=== PATIENT | female | born 1975 | race Two or more races ===

== ENCOUNTER 2016-07-19 17:31 | Inpatient (IN) | payer OTHER ==
[2016-07-19] MEDS ORDERED: HYDROmorphone HCL CARPU-JECT 1 MG/1 ML DISP.SYRIN IVPB ONE (17:44)
[2016-07-19 17:50] VITALS: BMI 38.4
[2016-07-19] MEDS: SODIUM CHLORIDE 1,000 ML IV SCH (17:52)
[2016-07-19] MEDS ORDERED: HYDROmorphone HCL CARPU-JECT 1 MG/1 ML DISP.SYRIN ONE (17:53)
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
[2016-07-19] MEDS ORDERED: VANCOMYCIN 1,000 MG in DEXTROSE 5%-WATER - 250 ML IVPB ONE (18:04)
[2016-07-19] MEDS ORDERED: PIPERACILLIN/TAZOB 3.375 GM/50 ML PRE-DOCKED IVPB ONE (18:04)
[2016-07-19 18:11] LABS: BASOPHIL 0.3 % (0-2.0); MCH 26.4 pg (25.7-33.7); MEAN CELL VOLUME 82.4 fl (80-96); NEUTROPHILS 59.4 % (42.8-82.8); PLATELET COUNT 225 K/MM3 (134-434); RDW 14.5 % (11.6-15.6); WHITE BLOOD COUNT 10.6 K/mm3 (4.0-10.0)
[2016-07-19] MEDS ORDERED: PIPERACILLIN/TAZOB 3.375 GM 50 ML IVPB ONE (18:33)
[2016-07-19] MEDS ORDERED: VANCOMYCIN 1 GRAM (PRE-DOCKED) 250 ML IVPB ONE (18:33)
[2016-07-19 19:17] LABS: ALBUMIN 2.9 g/dl (3.4-5.0); ALK PHOS 89 U/L (45-117); ANION GAP 7 (8-16); BILIRUBIN,TOTAL 0.2 mg/dL (0.2-1.0); CALCIUM 8.1 mg/dL (8.5-10.1); CO2 27 mmol/L (21-32); COCKROFT - GAULT 160.6415; CREATININE 0.7 mg/dL (0.55-1.02); GLUCOSE,RANDOM 94 mg/dL (74-106); SGOT/AST 14 U/L (15-37); SGPT/ALT 17 U/L (12-78); TOT PROT 6.8 g/dl (6.4-8.2)
[2016-07-19 21:14] LABS: URINE APPEARANCE CLOUDY; URINE BILIRUBIN NEGATIVE (NEGATIVE); URINE COLOR YELLOW; URINE GLUCOSE (UA) NEGATIVE (NEGATIVE); URINE KETONE NEGATIVE (NEGATIVE); URINE NITRITE POSITIVE (NEGATIVE); URINE UROBILINOGEN NEGATIVE E.U./dl (0.2-1.0)
[2016-07-19 21:26] LABS: URINE BLOOD 3+ (NEGATIVE); URINE LEUK ESTERASE 3+ (NEGATIVE); URINE PROTEIN 1+ (NEGATIVE)
[2016-07-19 21:27] LABS: URINE MUCUS RARE; URINE RBC 3091 /hpf (0-3); URINE WBC 381 /hpf (3-5)
--- NOTE | 2016-07-19 22:07 | PN ---
<Jono Delgadillo - Last Filed: 07/19/16 22:04> Teaching Attending Note Name of Resident: Enzo Francis ATTENDING PHYSICIAN STATEMENT I saw and evaluated the patient. I reviewed the resident's note and discussed the case with the resident. I agree with the resident's findings and plan as documented. SUBJECTIVE: OBJECTIVE: ASSESSMENT AND PLAN: <Maria Alejandra Loredo - Last Filed: 07/19/16 23:46> Teaching Attending Note ATTENDING PHYSICIAN STATEMENT I saw and evaluated the patient. I reviewed the resident's note and discussed the case with the resident. I agree with the resident's findings and plan as documented. SUBJECTIVE: 40 year old female with a pmhx of hypertension, hypercholesterolemia, diabetes mellitus, left ventricular hypokinesia with an ejection fraction of 30% and congestive heart failure, s/p cystourethroscopy with botox due to urinary incontinence presents with pain on urination. Smith removal 07/13 and vaginal packing inserted at that time. Patient reports pain and dysuria and urinary incontinence [address] Sam Velez OBJECTIVE: VS: Last Vital Signs Temp Pulse Resp BP Pulse Ox 98.4 F 90 18 150/95 100 07/19/16 17:37 07/19/16 17:37 07/19/16 17:37 07/19/16 17:37 07/19/16 17:37 GEN: NAD HEENT: NCAT, PERRL CARD: RRR, S1 S2 RESP: CTAB ABD: NT, BWS x4 EXT: - CCE LABS: CBCD WBC 10.6 K/mm3 (4.0-10.0) H 07/19/16 18:00 RBC 4.14 M/mm3 (3.60-5.2) 07/19/16 18:00 Hgb 10.9 GM/dL (10.7-15.3) 07/19/16 18:00 Hct 34.2 % (32.4-45.2) 07/19/16 18:00 MCV 82.4 fl (80-96) 07/19/16 18:00 MCHC 32.0 g/dl (32.0-36.0) 07/19/16 18:00 RDW 14.5 % (11.6-15.6) 07/19/16 18:00 Plt Count 225 K/MM3 (134-434) 07/19/16 18:00 MPV 9.0 fl (7.5-11.1) 07/19/16 18:00 CMP Sodium 138 mmol/L (136-145) 07/19/16 17:43 Potassium 4.2 mmol/L (3.5-5.1) 07/19/16 17:43 Chloride 104 mmol/L (98-107) 07/19/16 17:43 Carbon Dioxide 27 mmol/L (21-32) 07/19/16 17:43 Anion Gap 7 (8-16) L 07/19/16 17:43 BUN 14 mg/dL (7-18) 07/19/16 17:43 Creatinine 0.7 mg/dL (0.55-1.02) 07/19/16 17:43 Creat Clearance w eGFR > 60 (>60) 07/19/16 17:43 Calcium 8.1 mg/dL (8.5-10.1) L 07/19/16 17:43 Total Bilirubin 0.2 mg/dL (0.2-1.0) 07/19/16 17:43 AST 14 U/L (15-37) L 07/19/16 17:43 ALT 17 U/L (12-78) 07/19/16 17:43 Alkaline Phosphatase 89 U/L (45-117) 07/19/16 17:43 Total Protein 6.8 g/dl (6.4-8.2) 07/19/16 17:43 Albumin 2.9 g/dl (3.4-5.0) L 07/19/16 17:43 IMAGING: THIS IS A PRELIMINARY REPORT FROM [facility] EXAM: Ultrasound kidneys complete Pelvic ultrasound, non-OB EXAM DATE AND TIME: 2016-07-19 20:10:09.0 FINDINGS: Right kidney mild hydronephrosis. Otherwise bilateral kidneys are unremarkable. The kidney length 9.2 cm, left kidney 10.1 cm. Urinary bladder was not significantly distended during the exam, maximal volume noted 133 cc prevoid, with wall thickness 3.5 mm uniformly. Postvoid urinary bladder volume 11 mm. Bilateral ureteral jets intact. No large hematoma noted. Uterus shows no gross abnormality, however. Endometrium is not visualized on this transabdominal ultrasound. Uterine measurements 8.9 x 4.1 x 4.1 cm. Right ovary not visualized. Left ovary with complex cyst having multiple septations, 4.1 x 3.1 x 3.9 cm. The overall left ovary measures 6.5 x 4.7 x 5.4 cm. Follow-up pelvic sonogram in 6-12 weeks for reassessment. . No pelvic free fluid. THIS DOCUMENT HAS BEEN ELECTRONICALLY SIGNED Dante Mcintosh D.O. ASSESSMENT AND PLAN: 40 year old female with a pmhx of hypertension, hypercholesterolemia, diabetes mellitus, left ventricular hypokinesia with an ejection fraction of 30% and congestive heart failure, s/p cystourethroscopy with botox presents with dysuria found to have UTI. 1. UTI - Vanco Zosyn in ED - Continue Zosyn - ID consult - Prior culture 6/2 positive for Eslb Kleb 2. S/p history of reflex bladder s/p cystourethroscopy - Continue home meds - Urology consult 3. HTN - Continue home meds 4. DM - Hold metformin - RISS - Diabetic diet 5. Left ovarian cyst - Follow up with OB 6. DVT ppx - Low risk SCDs Admit to MedSurg. Documentation prepared by Maria Alejandra Loredo, acting as medical billing clerk for Jono Delgadillo D.O.
[2016-07-19] MEDS ORDERED: ACETAMINOPHEN 325 MG TABLET (FP) PO PRN (23:03)
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
[2016-07-20] MEDS ORDERED: ACETAMINOPHEN 325 MG TABLET (FP) ONE (03:25)
[2016-07-20] MEDS ORDERED: PIPERACILLIN/TAZOB 3.375 GM/50 ML PRE-DOCKED IVPB ONE (04:00)
[2016-07-20] MEDS ORDERED: PIPERACILLIN/TAZOB 3.375 GM 50 ML IVPB ONE (04:38)
[2016-07-20] MEDS: SODIUM CHLORIDE 1,000 ML IV SCH (05:02)
[2016-07-20 06:25] LABS: BASOPHIL 0.4 % (0-2.0); EOSINOPHIL 6.4 % (0-4.5); MCH 26.8 pg (25.7-33.7); MCHC 32.2 g/dl (32.0-36.0); MEAN CELL VOLUME 83.4 fl (80-96); NEUTROPHILS 58.7 % (42.8-82.8); PLATELET COUNT 208 K/MM3 (134-434); RDW 14.7 % (11.6-15.6); WHITE BLOOD COUNT 9.3 K/mm3 (4.0-10.0)
[2016-07-20 08:09] LABS: ALBUMIN 2.7 g/dl (3.4-5.0); ANION GAP 11 (8-16); CALCIUM 7.8 mg/dL (8.5-10.1); CO2 23 mmol/L (21-32); COCKROFT - GAULT 160.6415; CREATININE 0.7 mg/dL (0.55-1.02); GLUCOSE,RANDOM 106 mg/dL (74-106); SGOT/AST 14 U/L (15-37); SGPT/ALT 16 U/L (12-78)
[2016-07-20 08:12] LABS: ALK PHOS 84 U/L (45-117); BILIRUBIN,TOTAL 0.2 mg/dL (0.2-1.0); TOT PROT 6.3 g/dl (6.4-8.2)
--- NOTE | 2016-07-20 09:54 | PN ---
Progress Note (short form) - Note Progress Note: ID Full note dictated Patient not acutely ill Selected Entries 07/19/16 07/20/16 23:11 07:05 Temperature 98 F Pulse Rate [ 80 Apical] Respiratory 18 Rate Blood Pressure 104/64 [Left Arm] Microbiology 07/10/16 10:30 Urine - Urine, Via Cystoscope Urine Culture - Final Klebsiella Pneumoniae - Esbl Laboratory Tests 07/20/16 07/20/16 06:00 06:35 WBC 9.3 Hct 32.7 Plt Count 208 BUN 12 Creatinine 0.7 Creat Clearance w eGFR > 60 Assessment No sign of sepsis fever WBC or need for systemic antibiotics Plan patient s needs best met by discharge with direct to office urology appt [facility] Problem List - Problems (1) UTI (urinary tract infection) Code(s): N39.0 - URINARY TRACT INFECTION, SITE NOT SPECIFIED
[2016-07-20] MEDS ORDERED: IMIPRAMINE HCL 50 MG PO SCH (10:00)
[2016-07-20] MEDS ORDERED: METOPROLOL SUCCINATE 100 MG TAB.SR.24H (FP) PO SCH (10:00)
[2016-07-20] MEDS ORDERED: ASPIRIN 81 MG CHEWABLE TABLETS PO SCH (10:00)
[2016-07-20] MEDS ORDERED: cefTRIAXone 1 GM/50 ML BAG (PRE-DOCKED) IVPB SCH (10:00)
[2016-07-20] MEDS ORDERED: CEFTRIAXONE 1 GM in DEXTROSE 5%-WATER - 50 ML IVPB SCH (10:00)
[2016-07-20] MEDS ORDERED: LISINOPRIL 20 MG TABLET (FP) PO SCH (10:00)
[2016-07-20 10:26] VITALS: BP 124/81; PULSE 82; TEMP 97.6
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
--- NOTE | 2016-07-20 14:06 | EKG ---
Test Reason : Blood Pressure : / mmHG Vent. Rate : 070 BPM Atrial Rate : 070 BPM P-R Int : 146 ms QRS Dur : 098 ms QT Int : 416 ms P-R-T Axes : 035 024 035 degrees QTc Int : 449 ms NORMAL SINUS RHYTHM NORMAL ECG WHEN COMPARED WITH ECG OF 10-JUL-2016 10:09, NO SIGNIFICANT CHANGE WAS FOUND Confirmed by MIKEL MUJICA MD ([id number]) on 07/20/2016 2:06:20 PM Referred By: Confirmed By:MIKEL MUJICA MD
--- NOTE | 2016-07-20 16:26 | DS ---
Physical Exam: SUBJECTIVE: Patient seen and examined at bedside. No overnight events. No new complaints. Vaginal pain has improved significantly. Denies CP,BAH,SOB, palpitations, abd.pain, N/V. OBJECTIVE: Vital Signs Period Temp Pulse Resp BP Sys/Crow Pulse Ox Last 24 Hr 97.6 F-98 F 70-82 16-18 104-124/63-81 97-100 PHYSICAL EXAM GENERAL: AAOx3, NAD HEAD: NC/AT EYES: PERRL, EOMI, sclera anicteric, conjunctiva clear. ENT: moist mucous membranes. NECK: supple, No JVD LUNGS: CTAB, NO wheezing or rales HEART: RRR, S1S2, No M/G/R ABDOMEN: Soft, nontender, nondistended, normoactive bowel sounds, no guarding, no rebound, no hepatosplenomegaly, no masses. EXTREMITIES: 2+ pulses, warm, well-perfused, no edema. NEUROLOGICAL: Cranial nerves II through XII grossly intact. Normal speech, gait not observed. LABS Laboratory Results - last 24 hr 07/20/16 07/20/16 06:00 06:35 WBC 9.3 RBC 3.92 Hgb 10.5 L Hct 32.7 MCV 83.4 MCHC 32.2 RDW 14.7 Plt Count 208 MPV 9.0 Neutrophils % 58.7 Lymphocytes % 27.0 Monocytes % 7.5 Eosinophils % 6.4 H Basophils % 0.4 Sodium 140 Potassium 4.3 Chloride 106 Carbon Dioxide 23 Anion Gap 11 BUN 12 Creatinine 0.7 Creat Clearance w eGFR > 60 Random Glucose 106 Calcium 7.8 L Total Bilirubin 0.2 AST 14 L ALT 16 Alkaline Phosphatase 84 Total Protein 6.3 L Albumin 2.7 L IMAGING: * US/KIDNEY / RENAL US [id number] US/PELVIC / BLADDER US Renal and pelvic/ bladder ultrasound: HISTORY: Status post bladder Botox. Ultrasound of the kidneys and pelvis/bladder are performed. Renal ultrasound: The right kidney demonstrates mild hydronephrosis. Otherwise the kidneys are unremarkable bilaterally. The right kidney measures 9.2 cm in length and the left kidney measures 10.1 cm in length. Pelvic ultrasound: Urinary bladder is not significantly distended during the exam with maximal volume of 133 cc prevoid and wall thickness of 3.5 mm uniformly. Post void urinary bladder volume measures 11 cc. Bilateral ureteral inflow jets with color Doppler are intact. No large hematoma is noted. Uterus shows no gross abnormality however endometrium is not visualized on this transabdominal exam. Uterine measurements are 8.9 x 4.1 x 4.1 cm. Right ovary is not visualized. Left ovary demonstrates multiple cystic areas, possibly complex cyst with septations, with the largest cystic area measuring 4.1 x 3.1 x 3.9 cm. The overall size of the left ovary measures 6.5 x 4.7 x 5.4 cm. Follow-up pelvic sonogram in 6-12 weeks for reassessment is recommended. No free fluid is seen in the pelvis. IMPRESSION: Cystic areas in the left ovary as discussed above and recommend reassessment in 6-12 weeks with follow-up pelvic sonogram. Mild right renal hydronephrosis. Additional findings as above. Preliminary report given by Dr. Mcintosh of Imaging retail loss prevention specialist on July 19, 2016 at 21:36 EST. 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 Smith removal 07/13 and vaginal packing inserted at that time. Patient reported pain and dysuria and urinary incontinence 3 days prior to visit in ER. Packing removed in ER . UA showed possible cystitis vs. UTI however evaluated by infectious disease and felt that did no represent true infection given history of retained packing , no leukocytosis, or fevers. She received one time dose of Rocephin and IVF in ER. Her urologist was called and came to evaluated her in ER. Urology advised to be discharged with follow up in office in three day. She will follow up with Urology. US also showed simple ovarian cyst. She was given referral to OBGYN at [address] [place] [address] and told to make an appointment for follow up of cyst. Her pain improved significantly and conditioned improved. Stable for discharge. Date of Admission:07/19/16 Date of Discharge: 07/20/16 Minutes to complete discharge: 35 Discharge Summary Reason For Visit: CYSTITIS Current Active Problems HTN (hypertension) (Acute) Other complications of foreign body accidentally left in body following removal of catheter or packing, initial encounter (Acute) UTI (urinary tract infection) (Acute) Cystitis (Chronic) Diabetes (Chronic) Condition: Improved - Instructions Diet, Activity, Other Instructions: -Please follow up with Dr. Velez on 07/23/16 -You can use ice or cold compress for pain. -Make an appointment to see OBGYN Dr. Vela -Diabetic diet. -Increase activity as tolerated. Referrals: Kami Goldman [Primary Care Provider] - Marla Vela MD [Staff Physician] - Sam Velez MD [Staff Physician] - Disposition: HOME - Home Medications Comprehensive Discharge Medication List: Ambulatory Orders ASA - 81 mg PO DAILY 07/09/16 Imipramine HCl 50 mg PO BID 07/09/16 Lisinopril [Prinivil] 20 mg PO DAILY 07/09/16 Metformin HCl [Metformin HCl ER] 500 mg PO DAILY 07/09/16 Metoprolol Succinate 100 mg PO DAILY 07/09/16 This patient is new to me today: Yes Date on this admission: 07/20/16 Emergency Visit: Yes ED Registration Date: 07/19/16 Care time: The patient presented to the Emergency Department on the above date and was hospitalized for further evaluation of their emergent condition. Critical Care patient: No - Discharge Referral Referred to [facility] No
--- NOTE | 2016-07-20 20:51 | PN ---
Teaching Attending Note Name of Resident: Alexander Zavaleta ATTENDING PHYSICIAN STATEMENT I saw and evaluated the patient. I reviewed the resident's note and discussed the case with the resident. I agree with the resident's findings and plan as documented. SUBJECTIVE: Patient is feeling better, with no acute distress. No fever or chills, no shortness of breath, no nausea or vomiting. OBJECTIVE: Vital Signs Temperature 97.6 F 07/20/16 10:00 Pulse Rate 82 07/20/16 10:00 Respiratory Rate 18 07/20/16 10:00 Blood Pressure 124/81 07/20/16 10:00 O2 Sat by Pulse Oximetry (%) 100 07/20/16 09:00 CBCD WBC 9.3 K/mm3 (4.0-10.0) 07/20/16 06:00 RBC 3.92 M/mm3 (3.60-5.2) 07/20/16 06:00 Hgb 10.5 GM/dL (10.7-15.3) L 07/20/16 06:00 Hct 32.7 % (32.4-45.2) 07/20/16 06:00 MCV 83.4 fl (80-96) 07/20/16 06:00 MCHC 32.2 g/dl (32.0-36.0) 07/20/16 06:00 RDW 14.7 % (11.6-15.6) 07/20/16 06:00 Plt Count 208 K/MM3 (134-434) 07/20/16 06:00 MPV 9.0 fl (7.5-11.1) 07/20/16 06:00 CMP Sodium 140 mmol/L (136-145) 07/20/16 06:35 Potassium 4.3 mmol/L (3.5-5.1) 07/20/16 06:35 Chloride 106 mmol/L (98-107) 07/20/16 06:35 Carbon Dioxide 23 mmol/L (21-32) 07/20/16 06:35 Anion Gap 11 (8-16) 07/20/16 06:35 BUN 12 mg/dL (7-18) 07/20/16 06:35 Creatinine 0.7 mg/dL (0.55-1.02) 07/20/16 06:35 Creat Clearance w eGFR > 60 (>60) 07/20/16 06:35 Random Glucose 106 mg/dL (74-106) 07/20/16 06:35 Calcium 7.8 mg/dL (8.5-10.1) L 07/20/16 06:35 Total Bilirubin 0.2 mg/dL (0.2-1.0) 07/20/16 06:35 AST 14 U/L (15-37) L 07/20/16 06:35 ALT 16 U/L (12-78) 07/20/16 06:35 Alkaline Phosphatase 84 U/L (45-117) 07/20/16 06:35 Total Protein 6.3 g/dl (6.4-8.2) L 07/20/16 06:35 Albumin 2.7 g/dl (3.4-5.0) L 07/20/16 06:35 Home Medications Medication Instructions Recorded ASA - 81 mg PO DAILY 07/09/16 Metoprolol Succinate 100 mg PO DAILY 07/09/16 RX: Imipramine HCl 50 mg PO BID 07/09/16 RX: Lisinopril [Prinivil] 20 mg PO DAILY 07/09/16 RX: Metformin HCl [Metformin HCl 500 mg PO DAILY 07/09/16 ER] ASSESSMENT AND PLAN: Patient is a 40 year old female with a pmhx of hypertension, hypercholesterolemia, diabetes mellitus, 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 Removal of gauze from vaginal wall, pain subsided post removal of the gauze. Patient was treated by antibiotics for 1 weeks. Seen By ID and recommended no further antibiotic. patient will be seen by urologist before discharge. Agree with the resident's note
--- NOTE | 2016-07-22 13:42 | CONS ---
DATE OF CONSULTATION: 07/20/2016 HISTORY OF PRESENT ILLNESS: The patient is a 40-year-old female admitted last night via the emergency room, complaining of pelvic pain, dysuria and urinary incontinence. 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 She has a history of congestive heart failure. Last week she underwent a cystourethroscopy, with injection of 200 units of Botox because of an overactive bladder. The patient presented to the emergency room with dysuria and pelvic pain. She stated that her Smith catheter was removed last week and a 4 x 4 gauze was left in place. She stated that she was to have a repeat visit on July 16 to remove the gauze. She did not show up for the visit. She is complaining of severe dysuria and urinary incontinence. She also claims that her vaginal discharge is odorless, and she is unable to adduct her legs due to pain. She denies any nausea, vomiting or diarrhea. She denies any hematuria, flank pain or vaginal bleeding. She also denies chest pain, shortness of breath or coughing. The patient is admitted because of postoperative pain and dysuria. PAST SURGICAL HISTORY: She denies any previous surgeries. ALLERGIES: She is allergic to CLINDAMYCIN and OXYCODONE. MEDICATIONS: At home she takes aspirin, imipramine, lisinopril, metformin and metoprolol. HABITS: She denies any tobacco use. She does drink alcohol occasionally. REVIEW OF SYSTEMS: A review of systems basically revealed the cardiac history, a mild dementia, dyslipidemia and urinary incontinence. PHYSICAL EXAMINATION: Exam revealed suprapubic tenderness. She complains of dysuria and urge incontinence. Neurologically, she is intact. Extremities revealed no cyanosis, clubbing or edema. There was full range of motion. Temperature on admission was 98.4. Pulse oximetry is 100%. Blood pressure 150/95. Respirations were 18 and regular. DIAGNOSTIC STUDIES: The patient underwent laboratory workup, which revealed a white count of 10.6, hemoglobin 10.9, hematocrit 34.2, platelets 225. BUN 14, creatinine 0.7, random glucose 194, lactic acid 1.2. Liver enzymes were completely normal. Urinalysis was positive for blood as well as nitrites. HOSPITAL COURSE: The patient was started on vancomycin as well as Zosyn in the emergency room. ASSESSMENT: Again, this is a 40-year-old female with history of overactive bladder. She is status post 200 units of Botox injection in the bladder. She still has overactive bladder and urinary incontinence. It appears that she has a urinary tract infection. PLAN: Recommend a renal pelvic ultrasound. Recommend IV antibiotics as per ID recommendations. We will follow in office. Sridevi [id number]
== END 2016-07-20 17:00 | disposition home or self-care (01) | DRG 466 ==
LOC: JER 17:31 → JERBED 22:07 → J8W 07-20 13:54
PROVIDERS: ADMIT Internal Medicine; ATTEND Internal Medicine
PROC: 0UCG7ZZ Extirpation of Matter from Vagina, Via Natural or Artificial Opening (ICD-10-PCS; principal; 2016-07-19)
DX: N99.89 Other postprocedural complications and disorders of genitourinary system (principal); N39.0 Urinary tract infection, site not specified; N83.202 Unspecified ovarian cyst, left side; E11.9 Type 2 diabetes mellitus without complications; I42.0 Dilated cardiomyopathy; I11.0 Hypertensive heart disease with heart failure; I50.9 Heart failure, unspecified; N13.30 Unspecified hydronephrosis; Y83.9 Surgical procedure, unspecified as the cause of abnormal reaction of the patient, or of later complication, without mention of misadventure at the time of the procedure; E78.5 Hyperlipidemia, unspecified
CPT/HCPCS: 36415; 76775-TC; 76856-TC; 80053; 81003; 81015; 83605; 85025; 87040; 87086; 87205; 93005; 93010; 99285-25

== ENCOUNTER 2017-06-25 13:30 | Emergency (ER) | payer OTHER ==
[2017-06-25 13:43] VITALS: TEMP 97.7; BMI 40.8
[2017-06-25] MEDS ORDERED: PANTOPRAZOLE SODIUM 40 MG VIAL IVPUSH ONE (16:32)
[2017-06-25] MEDS ORDERED: METOCLOPRAMIDE HCL INJECTION 10 MG/2 ML VIAL IVPUSH ONE (16:32)
[2017-06-25] MEDS ORDERED: FAMOTIDINE 20 MG/50 ML IVPB 20 MG/50 ML MG IVPB ONE ×2 (16:45→17:06)
[2017-06-25] MEDS ORDERED: PANTOPRAZOLE SODIUM 40 MG VIAL ONE (17:05)
[2017-06-25] MEDS ORDERED: METOCLOPRAMIDE HCL INJECTION 10 MG/2 ML VIAL ONE (17:05)
[2017-06-25 17:46] VITALS: BP 146/101; PULSE 88
[2017-06-25 17:48] LABS: BASO % 0.3 % (0-2.0); HEMATOCRIT 42.8 % (32.4-45.2); HEMOGLOBIN 14.2 GM/dL (10.7-15.3); LYMPH % 28.8 % (8-40); MCH 27.2 pg (25.7-33.7); MCHC 33.2 g/dl (32.0-36.0); MEAN CELL VOLUME 81.9 fl (80-96); MEAN PLT VOLUME 9.2 fl (7.5-11.1); MONO % 5.3 % (3.8-10.2); NEUT % 60.6 % (42.8-82.8); PLATELET COUNT 285 K/MM3 (134-434); RBC 5.23 M/mm3 (3.60-5.2); RDW 16.1 % (11.6-15.6); WHITE BLOOD COUNT 11.5 K/mm3 (4.0-10.0)
[2017-06-25 19:14] LABS: ALBUMIN 3.4 g/dl (3.4-5.0); BLOOD UREA NITROGEN 14 mg/dL (7-18); CALCIUM 8.7 mg/dL (8.5-10.1); CHLORIDE 100 mmol/L (98-107); POTASSIUM 4.1 mmol/L (3.5-5.1); SODIUM 133 mmol/L (136-145)
[2017-06-25 19:19] LABS: ALK PHOS 103 U/L (45-117); ANION GAP 8 (8-16); BILIRUBIN,TOTAL 0.5 mg/dL (0.2-1.0); CO2 25 mmol/L (21-32); CREATININE 0.9 mg/dL (0.55-1.02); SGOT/AST 38 U/L (15-37); SGPT/ALT 43 U/L (12-78)
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
[2017-06-25 19:49] LABS: GLUCOSE,RANDOM 310 mg/dL (74-106)
--- NOTE | 2017-06-29 00:43 | EKG ---
Test Reason : Blood Pressure : / mmHG Vent. Rate : 083 BPM Atrial Rate : 083 BPM P-R Int : 144 ms QRS Dur : 092 ms QT Int : 386 ms P-R-T Axes : 035 017 058 degrees QTc Int : 453 ms NORMAL SINUS RHYTHM NORMAL ECG WHEN COMPARED WITH ECG OF 19-JUL-2016 20:06, NO SIGNIFICANT CHANGE WAS FOUND Confirmed by MIKEL MUJICA MD ([id number]) on 06/29/2017 12:43:08 AM Referred By: Confirmed By:MIKEL MUJICA MD
== END 2017-06-25 20:23 | disposition home or self-care (01) ==
LOC: JER 13:30
PROC: 3E033GC Introduction of Other Therapeutic Substance into Peripheral Vein, Percutaneous Approach (ICD-10-PCS; principal; 2017-06-25)
PROC: 3E033GC Introduction of Other Therapeutic Substance into Peripheral Vein, Percutaneous Approach (ICD-10-PCS; 2017-06-25)
PROC: 3E033GC Introduction of Other Therapeutic Substance into Peripheral Vein, Percutaneous Approach (ICD-10-PCS; 2017-06-25)
DX: R07.89 Other chest pain (principal); N39.0 Urinary tract infection, site not specified; E11.9 Type 2 diabetes mellitus without complications; Z79.84 Long term (current) use of oral hypoglycemic drugs; I42.9 Cardiomyopathy, unspecified; E78.5 Hyperlipidemia, unspecified; Z87.891 Personal history of nicotine dependence
CPT/HCPCS: 36415; 80053; 82550; 84484; 84703; 85025; 93005; 93010; 96365; 96375; 99284-25

== ENCOUNTER 2018-02-04 18:49 | Emergency (ER) | payer OTHER ==
--- NOTE | 2018-02-04 18:56 | PDOC ---
History of Present Illness - General Chief Complaint: Injury Stated Complaint: FALL Time Seen by Provider: 02/04/18 18:53 History Source: Patient Exam Limitations: No Limitations - History of Present Illness Initial Comments: 02/04/18 19:12 Best Contact: PCP:Manuel Pmhx: Neg Pshx:Neg Allergies:clindamycin/oxycodone/rash FH:0 Social Hx: Cigarettes/ 0 Alcohol/ 0 Drugs/0 LMP:01/12/2018 42-year-old female who is right hand dominant presents to the ER complaining of pain to the mid forearm with difficulty upon supination after she fell off a high bed onto the outstretched of her right hand. Pain is described as 6/10 dull nonradiating intermittent discomfort which is exacerbated upon supination and alleviated at rest. Patient states she had surgery on her right forearm when she was 16 years ago after an accident. Patient denies any head injuries today, neck pain, back pains, chest pain, shortness of breath, abdominal discomfort, Jimmy numbness or tingling sensation. Past History - Past Medical History Allergies/Adverse Reactions: Allergies Allergy/AdvReac Type Severity Reaction Status Date / Time clindamycin Allergy Severe Verified 02/04/18 18:56 oxycodone AdvReac Intermediate Nausea Verified 02/04/18 18:56 Home Medications: Ambulatory Orders Metformin HCl [Glucophage] 500 mg PO BID #60 tablet 06/25/17 Metoprolol Tartrate 100 mg PO DAILY 06/25/17 Ranitidine HCl [Zantac] 150 mg PO DAILY 06/25/17 Anemia: No Asthma: No Cancer: No Cardiac Disorders: Yes CVA: No COPD: No CHF: No Dementia: Yes Diabetes: No GI Disorders: No Disorders: No HTN: Yes Hypercholesterolemia: Yes Liver Disease: No Seizures: No Thyroid Disease: No - Surgical History Abdominal Surgery: No Appendectomy: No Cardiac Surgery: No Cholecystectomy: No Lung Surgery: No Neurologic Surgery: No Orthopedic Surgery: No - Suicide/Smoking/Psychosocial Hx Smoking History: Former smoker Have you smoked in the past 12 months: No If you are a former smoker, when did you quit?: 2006 Hx Alcohol Use: No Drug/Substance Use Hx: No Substance Use Type: None Hx Substance Use Treatment: No Review of Systems - Review of Systems Able to Perform ROS?: Yes Comments:: 02/04/18 19:08 CONSTITUTIONAL: Absent: fever, chills, diaphoresis, generalized weakness, malaise, loss of appetite HEENT: Absent: rhinorrhea, nasal congestion, throat pain, throat swelling, difficulty swallowing, mouth swelling, ear pain, eye pain, visual Changes CARDIOVASCULAR: Absent: chest pain, loss of consciousness, palpitations, irregular heart rate, peripheral edema RESPIRATORY: Absent: cough, shortness of breath, dyspnea with exertion, orthopnea, wheezing, stridor, hemoptysis GASTROINTESTINAL: Absent: abdominal pain, abdominal distension, nausea, vomiting, diarrhea, constipation, melena, hematochezia GENITOURINARY: Absent: dysuria, frequency, urgency, hesitancy, hematuria, flank pain, genital pain MUSCULOSKELETAL: Right mid forearm and elbow pain Absent: myalgia, arthralgia, joint swelling SKIN: Absent: rash, itching, pallor NEUROLOGIC: Absent: headache, focal weakness or paresthesias, dizziness, unsteady gait, seizure, mental status changes, bladder or bowel incontinence Is the patient limited Chinese proficient: No *Physical Exam - Physical Exam Comments: 02/04/18 19:09 GENERAL: Well developed, well nourished. Awake and alert. No acute distress. HEENT: Normocephalic, atraumatic. PERRLA, EOMI. No conjunctival pallor. Sclera are non- icteric. Moist mucous membranes. Oropharynx is clear. NECK: Supple. Full ROM. No JVD. Carotid pulses 2+ and symmetric, without bruits. No thyromegaly. No lymphadenopathy. CARDIOVASCULAR: Regular rate and rhythm. No murmurs, rubs, or gallops. Distal pulses are 2+ and symmetric. PULMONARY: No evidence of respiratory distress. Lungs clear to auscultation bilaterally. No wheezing, rales or rhonchi. ABDOMINAL: Soft. Non-tender. Non-distended. No rebound or guarding. No organomegaly. Normoactive bowel sounds. MUSCULOSKELETAL Normal range of motion at all joints. No bony deformities or tenderness. No CVA tenderness. EXTREMITIES: Right elbow: F.R>O.M./slight pain on passive movement neg swelling neg pain on palp neg obv deformities RIght wrist 2+radial pulse neg obv swelling/deformities Right forearm: healed scar on ant forearm neg pain on -palp +pain on supination neg pain on pronation No cyanosis. No clubbing. No edema. No calf tenderness. SKIN: Warm and dry. Normal capillary refill. No rashes. No jaundice. NEUROLOGICAL: Alert, awake, appropriate. Cranial nerves 2-12 intact. No deficits to light touch and temperature in face, upper extremities and lower extremities. No motor deficits in the in face, upper extremities and lower extremities. Normoreflexic in the upper and lower extremities. Normal speech. Toes are down- going bilaterally. Gait is normal without ataxia. PSYCHIATRIC: Cooperative. Good eye contact. Appropriate mood and affect. ED Treatment Course - RADIOLOGY Radiograph Interpretation: 02/04/18 19:08 xray: right forearm: neg right elbow: neg *DC/Admit/Observation/Transfer Diagnosis at time of Disposition: Contusion of forearm, right Qualifiers: Encounter type: initial encounter Qualified Code(s): S50.11XA - Contusion of right forearm, initial encounter - Discharge Dispostion Condition at time of disposition: Stable Decision to Admit order: No - Referrals Referrals: Suzanne Wiley [Primary Care Provider] - Deng Corbin DO [Staff Physician] - - Patient Instructions Printed Discharge Instructions: DI for Contusion Additional Instructions: Ice; 20 mins on alternating with 20 mins off for 48 hours while awake. Rest Elevate Follow up with your orthopedic surgeon or the one listed on the discharge form. Return to the ER for severe/persistent/worsening symptoms, extremity numbness/ tingling sensation. - Post Discharge Activity
[2018-02-04 19:04] VITALS: BP 95/67; PULSE 73; TEMP 97.9; BMI 32.9
== END 2018-02-04 19:24 | disposition home or self-care (01) ==
LOC: JERFT 18:49
DX: S50.11XA Contusion of right forearm, initial encounter (principal); W06.XXXA Fall from bed, initial encounter; Y93.89 Activity, other specified; Y92.032 Bedroom in apartment as the place of occurrence of the external cause; Y99.8 Other external cause status; I10 Essential (primary) hypertension; E78.00 Pure hypercholesterolemia, unspecified; F03.90 Unspecified dementia, unspecified severity, without behavioral disturbance, psychotic disturbance, mood disturbance, and anxiety; E11.9 Type 2 diabetes mellitus without complications; Z79.84 Long term (current) use of oral hypoglycemic drugs
CPT/HCPCS: 73070-TC-RT-FY; 73090-TC-RT-FY; 99281-25